=== PATIENT | female | born 1990 | race Caucasian/White ===

== ENCOUNTER 2017-08-12 17:47 | Emergency (ER) | payer OTHER ==
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
[2017-08-12] MEDS ORDERED: NEOMYCIN SU/BACITRAC ZN/POLY 1 EACH OINT.PACK TP ONE (18:13)
[2017-08-12 23:45] VITALS: BP 127/77
== END 2017-08-12 18:29 | disposition home or self-care (01) ==
LOC: ED 17:47
DX: T23.111A Burn of first degree of right thumb (nail), initial encounter (principal); V49.9XXA Car occupant (driver) (passenger) injured in unspecified traffic accident, initial encounter
CPT/HCPCS: 99282